=== PATIENT | female | born 2000 | race Caucasian/White ===

== ENCOUNTER 2024-12-16 13:06 | Outpatient (CLI) | payer BC | END 2024-12-16 13:07 | disposition home or self-care (01) | LOC: SCSMRI 13:06 | PROVIDERS: ATTEND Student in an Organized Health Care Education/Training Program | DX: M43.06 Spondylolysis, lumbar region (principal); M51.26 Other intervertebral disc displacement, lumbar region; M48.061 Spinal stenosis, lumbar region without neurogenic claudication; M48.07 Spinal stenosis, lumbosacral region | CPT/HCPCS: 72148 ==